=== PATIENT | male | born 1955 | race Caucasian/White ===

== ENCOUNTER 2016-12-02 11:05 | Emergency (ER) | payer BC ==
[2016-12-02] MEDS ORDERED: Amiodarone 150 MG in Dextrose 5% in Water 100 ML IV ONE ×2 (11:13)
[2016-12-02] MEDS ORDERED: Sodium Chloride 0.9% 2.5 ML Syringe FLUSH PRN (11:13)
[2016-12-02] MEDS ORDERED: Sodium Chloride 0.9% 10 ML Syringe FLUSH PRN (11:13)
[2016-12-02] MEDS ORDERED: Sodium Chloride 0.9% 1,000 ML IV ONE (11:13)
--- NOTE | 2016-12-02 11:14 | EDM.PDOC ---
ED HPI GENERAL MEDICAL PROBLEM - General Chief Complaint: Cardiovascular Problem Stated Complaint: IRREGULAR HEARTBEAT Time Seen by Provider: 12/02/16 11:14 Source of Information: Reports: Patient History Limitations: Reports: No Limitations - History of Present Illness INITIAL COMMENTS - FREE TEXT/NARRATIVE: HISTORY AND PHYSICAL: []59-year-old male presenting with rapid heart rate History of Present Illness: []Half hour prior to admission patient states his heart started to race has had episodes of this in the past normally it resolves on its own after 5-10 minutes. He has had adenosine in the past. Currently patient is not on medications Patient lives in [place], [place] Review of Systems: As per history of present illness and below otherwise all systems reviewed and negative. Past medical history: As per history of present illness and as reviewed below otherwise noncontributory. Surgical history: As per history of present illness and as reviewed below otherwise noncontributory. Social history: No reported history of drug or alcohol abuse. Family history: As per history of present illness and as reviewed below otherwise noncontributory. Physical exam: Alert and oriented male speaking in full sentences. Calm. No shortness of breath. HEENT: Atraumatic, normocehpalic, pupils reactive, negative for conjunctival pallor or scleral icterus, mucous membranes moist, throat clear, neck supple, nontender, trachea midline. Lungs: Clear to auscultation, breath sounds equal bilaterally, chest non tender. Heart: S1S2, regular, negative for clicks, rubs, or JVD. EKG shows SVT 194 Abdomen: Soft, nondistended, nontender. Negative for masses or hepatossplenmegaly. Negative for costovertebral tenderness. Pelvis: Stable nontender. Genitourinary: Deferred. Rectal: Deferred Extremities: Atraumatic, negative for cords or calf pain. Neurovascular unremarkable. Neuro: Awake, alert, oriented. Cranial nerves II through XII unremarkable. Cerebellum unremarkable. Motor and sensory unremarkable throughout. Exam nonfocal. As adenosine 6 mL was injected followed by 20ml saline flush. A short possible was noted and the patient converted to sinus rhythm 74-78 bpm Diagnostics: [CBC CMP troponin] Therapeutics: [Adenosine Impression: [SVT converted] Plan: [Discharged home Follow up with your primary care provider ] Definitive disposition and diagnosis as appropriate pending reevaluation and review of above. Onset: Today, Sudden Duration: Chronic - Related Data Allergies Allergy/AdvReac Type Severity Reaction Status Date / Time No Known Allergies Allergy Verified 12/02/16 11:08 Home Meds: Home Meds . [No Known Home Meds] 12/02/16 [History] ED ROS GENERAL - Review of Systems Review Of Systems: ROS reveals no pertinent complaints other than HPI. ED EXAM, GENERAL - Physical Exam Exam: See Below (see dictation) Course - Vital Signs Last Recorded V/S: Last Vital Signs Temp 36.6 C 12/02/16 11:08 Pulse 75 12/02/16 11:43 Resp 20 12/02/16 11:43 BP 109/78 12/02/16 11:43 Pulse Ox 98 12/02/16 11:43 - Orders/Labs/Meds Orders: Active Orders 24 hr Category Date Time Status Cardiac Monitoring [RC] . DIRECTED Care 12/02/16 11:13 Active Oxygen Therapy, ED [RC] ASDIRECTED Care 12/02/16 11:13 Active Sodium Chloride 0.9% [Normal Saline] 1,000 ml Med 12/02/16 11:13 Active IV STAT Sodium Chloride 0.9% [Saline Flush] Med 12/02/16 11:13 Active 10 ml FLUSH ASDIRECTED PRN Sodium Chloride 0.9% [Saline Flush] Med 12/02/16 11:13 Active 2.5 ml FLUSH ASDIRECTED PRN Saline Lock Insert [OM.PC] Stat Oth 12/02/16 11:12 Ordered Medication Orders Sodium Chloride (Normal Saline) 1,000 mls @ 999 mls/hr IV STAT ONE Stop: 12/02/16 12:13 Last Admin: 12/02/16 11:20 Dose: 999 mls/hr Sodium Chloride (Saline Flush) 10 ml FLUSH ASDIRECTED PRN PRN Reason: Keep Vein Open Last Admin: 12/02/16 11:42 Dose: 10 ml Sodium Chloride (Saline Flush) 2.5 ml FLUSH ASDIRECTED PRN PRN Reason: Keep Vein Open Last Admin: 12/02/16 11:43 Dose: 2.5 ml Labs: Laboratory Tests 12/02/16 12/02/16 12/02/16 Range/Units 11:14 11:14 11:14 WBC 6.99 (4.0-11.0) K/uL RBC 4.41 L (4.50-5.90) M/uL Hgb 14.4 (13.0-17.0) g/dL Hct 42.3 (38.0-50.0) % MCV 95.9 (80.0-98.0) fL MCH 32.7 H (27.0-32.0) pg MCHC 34.0 (31.0-37.0) g/dL RDW Std Deviation 41.9 (28.0-62.0) fl RDW Coeff of Alen 12 (11.0-15.0) % Plt Count 200 (150-400) K/uL MPV 10.40 (7.40-12.00) fL Neut % (Auto) 56.0 (48.0-80.0) % Lymph % (Auto) 33.6 (16.0-40.0) % Lee % (Auto) 8.7 (0.0-15.0) % Eos % (Auto) 1.3 (0.0-7.0) % Baso % (Auto) 0.4 (0.0-1.5) % Neut # (Auto) 3.9 (1.4-5.7) K/uL Lymph # (Auto) 2.4 (0.6-2.4) K/uL Lee # (Auto) 0.6 (0.0-0.8) K/uL Eos # (Auto) 0.1 (0.0-0.7) K/uL Baso # (Auto) 0.0 (0.0-0.1) K/uL Sodium 142 (136-146) mmol/L Potassium 3.9 (3.5-5.1) mmol/L Chloride 106 (98-110) mmol/L Carbon Dioxide 26 (21-31) mmol/L BUN 17 (6.0-23.0) mg/dL Creatinine 0.8 (0.6-1.5) mg/dL Est Cr Clr Drug Dosing TNP Estimated GFR (MDRD) > 60.0 ml/min Glucose 100 (60-110) mg/dL Calcium 9.3 (8.8-10.8) mg/dL Total Bilirubin 0.9 (0.1-1.5) mg/dL AST 17 (5-40) IU/L ALT 15 (8-54) IU/L Alkaline Phosphatase 54 (40-150) Troponin I < 0.10 (0.0-0.29) NG/ML Total Protein 6.7 (6.0-8.0) g/dL Albumin 4.4 (3.4-4.8) g/dL Globulin 2.3 (2.0-3.5) g/dL Albumin/Globulin Ratio 1.9 (1.3-2.8) Meds: Medications Generic Name Dose Route Start Last Admin Trade Name Freq PRN Reason Stop Dose Admin Sodium Chloride 1,000 mls @ 999 mls/hr 12/02/16 11:13 12/02/16 11:20 Normal Saline IV 12/02/16 12:13 999 mls/hr STAT ONE Administration Sodium Chloride 10 ml 12/02/16 11:13 12/02/16 11:42 Saline Flush FLUSH 10 ml ASDIRECTED PRN Administration Keep Vein Open Sodium Chloride 2.5 ml 12/02/16 11:13 12/02/16 11:43 Saline Flush FLUSH 2.5 ml ASDIRECTED PRN Administration Keep Vein Open Discontinued Medications Generic Name Dose Route Start Last Admin Trade Name Freq PRN Reason Stop Dose Admin Adenosine Confirm 12/02/16 11:23 12/02/16 11:42 Adenocard Administered 12/02/16 11:24 Not Given Dose 18 mg .ROUTE .STK-MED ONE Adenosine 6 mg 12/02/16 11:41 12/02/16 11:25 Adenocard IVPUSH 12/02/16 11:42 6 mg NOW ONE Administration Amiodarone HCl 150 mg/ 103 mls @ 600 mls/hr 12/02/16 11:13 Dextrose/Water IV 12/02/16 11:23 .BOLUS ONE Departure - Departure Time of Disposition: 12:03 Disposition: Home, Self-Care 01 Condition: Good Clinical Impression: SVT (supraventricular tachycardia) Forms: ED Department Discharge Additional Instructions: The following information is given to patients seen in the emergency department who are being discharged to home. This information is to outline your options for follow-up care. We provide all patients seen in our emergency department with a follow-up referral. The need for follow-up, as well as the timing and circumstances, are variable depending upon the specifics of your emergency department visit. If you don't have a primary care physician on staff, we will provide you with a referral. We always advise you to contact your personal physician following an emergency department visit to inform them of the circumstance of the visit and for follow-up with them and/or the need for any referrals to a consulting specialist. The emergency department will also refer you to a specialist when appropriate. This referral assures that you have the opportunity for followup care with a specialist. All of these measure are taken in an effort to provide you with optimal care, which includes your followup. Under all circumstances we always encourage you to contact your private physician who remains a resource for coordinating your care. When calling for followup care, please make the office aware that this follow-up is from your recent emergency room visit. If for any reason you are refused follow-up, please contact the [facility] emergency department at and asked to speak to the emergency department charge nurse. You were given adenosine while in the emergency department which converted your heart rate to sinus rhythm No abnormalities were noted in the blood work that has been completed Please follow-up next week with your primary care provider Should you return to your rapid heart rate please return to the emergency room for reevaluation - My Orders Last 24 Hours: My Active Orders 12/02/16 11:12 Saline Lock Insert [OM.PC] Stat 12/02/16 11:13 Cardiac Monitoring [RC] . DIRECTED Oxygen Therapy, ED [] ASDIRECTED Sodium Chloride 0.9% [Normal Saline] 1,000 ml IV STAT Sodium Chloride 0.9% [Saline Flush] 10 ml FLUSH ASDIRECTED PRN Sodium Chloride 0.9% [Saline Flush] 2.5 ml FLUSH ASDIRECTED PRN - Assessment/Plan Last 24 Hours: My Active Orders 12/02/16 11:12 Saline Lock Insert [OM.PC] Stat 12/02/16 11:13 Cardiac Monitoring [RC] . DIRECTED Oxygen Therapy, ED [RC] ASDIRECTED Sodium Chloride 0.9% [Normal Saline] 1,000 ml IV STAT Sodium Chloride 0.9% [Saline Flush] 10 ml FLUSH ASDIRECTED PRN Sodium Chloride 0.9% [Saline Flush] 2.5 ml FLUSH ASDIRECTED PRN
[2016-12-02] MEDS ORDERED: Adenosine 6 MG/2 ML SDV ONE (11:23)
[2016-12-02] MEDS ORDERED: Adenosine 6 MG/2 ML SDV IVPUSH ONE (11:41)
[2016-12-02 11:59] LABS: CHLORIDE,CL 106 mmol/L (98-110); SODIUM,NA 142 mmol/L (136-146)
[2016-12-02 14:28] VITALS: BP 120/71
== END 2016-12-02 12:33 | disposition home or self-care (01) ==
LOC: MW.ED 11:05
DX: I47.1 Supraventricular tachycardia (principal)
CPT/HCPCS: 36415; 80053; 84484; 85025; 96361; 96374; 99285; J0153; J7040; 99283